=== PATIENT | male | born 1970 | race Caucasian/White ===

== ENCOUNTER 2017-02-19 09:01 | Inpatient (IN) | payer OTHER ==
[2017-02-19 10:06] VITALS: BMI 21.7
--- NOTE | 2017-02-19 14:42 | HP ---
CIWA Score - CIWA Score Nausea/Vomitin Muscle Tremors: 5 Anxiety: 4-Mod. Anxious/Guarded Agitation: 2 Paroxysmal Sweats: 4-Forehead w/Sweat Beads Orientation: 0-Oriented Tacttile Disturbances: 2-Mild Itch/Numbness/Burn Auditory Disturbances: 0-None Visual Disturbances: 0-None Headache: 1-Very Mild CIWA-Ar Total Score: 20 Admission ROS BHS - HPI Chief Complaint: "I really want to get Detoxed. I have been drinking for too long now." Pt. is here to Detox from Alcohol. Allergies/Adverse Reactions: Allergies Allergy/AdvReac Type Severity Reaction Status Date / Time No Known Allergies Allergy Verified 02/19/17 11:07 History of Present Illness: Pt. is a 47 YO male here to Detox from Alcohol. this is pt.'s first detox admission at [facility]. Pt. has had 1 previous Detox admission at [facility], many years ago. Exam Limitations: No Limitations - Ebola screening Have you traveled outside of the country in the last 21 days: No Have you had contact with anyone from an Ebola affected area: No Have you been sick,other than usual withdrawal symptoms: No Do you have a fever: No - Review of Systems Constitutional: Chills, Diaphoresis, Fever, Malaise, Night Sweats, Changes in sleep, Other (Patient ambulates with assistance of a cane.) EENT: reports: No Symptoms Reported Respiratory: reports: Productive cough Cardiac: reports: Syncope (X 1, Due to heat while at work approx. 1.5 months ago.) GI: reports: Constipated, Nausea, Indigestion : reports: No Symptoms Reported Musculoskeletal: reports: Back Pain, Neck Pain (Lipoma on posterior aspect of neck, Diagnosed approx. 2 years ago.) Integumentary: reports: No Symptoms Reported, Other (Small wound on Index finger of right hand, due to punching floor.) Neuro: reports: Numbness (Toes of Bilateral Feet.), Tingling (Toes of Bilateral Feet.), Tremors Endocrine: reports: No Symptoms Reported Hematology: reports: No Symptoms Reported Psychiatric: reports: Judgement Intact, Mood/Affect Appropiate, Orientated x3, Anxious, Depressed (Particularly after Passing of Mother, approx. 1.5 years ago. ) Other Systems: Reviewed and Negative Patient History - Patient Medical History Hx Anemia: No Hx Asthma: No Hx Chronic Obstructive Pulmonary Disease (COPD): No Hx Cancer: No Hx Cardiac Disorders: No Hx Congestive Heart Failure: No Hx Hypertension: Yes (On med.) Hx Hypercholesterolemia: Yes (No meds.) Hx Pacemaker: No HX Cerebrovascular Accident: Yes (Age 20, no lasting effect.) Hx Seizures: No Hx Dementia: No Hx Diabetes: No (Informed that he was Pre-diabetic by MD.) Hx Gastrointestinal Disorders: Yes (acid reflux) Hx Liver Disease: No Hx Genitourinary Disorders: No Hx Sexually Transmitted Disorders: No Hx Renal Disease (ESRD): No Hx Thyroid Disease: No Hx Human Immunodeficiency Virus (HIV): No (Last tested: approx. 1.5 months ago: NEGATIVE.) Hx Hepatitis C: No (Last tested: approx. 1.5 months ago: NEGATIVE.) Hx Depression: Yes (Particularly after of mother, on med., stopped approx. 6 months ago.) Hx Suicide Attempt: Yes (thought of jumping off a building at age 19; PATIENT DENIES CURRENT SI/HI.) Hx Bipolar Disorder: No Hx Schizophrenia: No Other Medical History: Spinal Stenosis, diagnosed 2009; Right knee injury ( approx. age 28). - Patient Surgical History Past Surgical History: No Hx Neurologic Surgery: No Hx Cataract Extraction: No Hx Cardiac Surgery: No Hx Lung Surgery: No Hx Breast Surgery: No Hx Breast Biopsy: No Hx Abdominal Surgery: No Hx Appendectomy: No Hx Cholecystectomy: No Hx Genitourinary Surgery: No Hx Section: No Hx Orthopedic Surgery: No Anesthesia Reaction: No - PPD History Previous Implant?: Yes Documented Results: Negative w/o proof Implanted On Prior R Admission?: No PPD to be Administered?: Yes - Reproductive History Patient is a Female of Child Bearing Age (11 -55 yrs old): No (PATIENT IS MALE.) - Smoking Cessation Smoking history: Current every day smoker Have you smoked in the past 12 months: Yes Aproximately how many cigarettes per day: 30 Cigars Per Day: 0 Hx Chewing Tobacco Use: No Initiated information on smoking cessation: Yes 'Breaking Loose' booklet given: 02/19/17 (GIVEN ON UNIT.) - Substance & Tx. History Hx Alcohol Use: Yes Hx Substance Use: Yes Substance Use Type: Alcohol Hx Substance Use Treatment: Yes (1 Previous Detox admission at [facility], several years ago.) - Substances Abused PCP Route: Smoking Frequency: 1-3 times last 30 days Amount used: $15 Age of first use: 47 Date of Last Use: 02/17/17 Alcohol-vodka Route: Oral Frequency: Daily Amount used: 2 pts. Age of first use: 15 Date of Last Use: 02/18/17 Family Disease History - Family Disease History Family Disease History: Heart Disease: Grandparent, [place]: Mother (.), Other: Daughter (Thyroid Disorder.) Admission Physical Exam [facility] - Vital Signs Vital Signs: Vital Signs - 24 hr 02/19/17 10:04 Temperature 97.1 F L Pulse Rate 101 H Respiratory 20 Rate Blood Pressure 137/79 - Physical General Appearance: Yes: Nourished, Appropriately Dressed, Mild Distress, Tremorous, Sweating, Anxious, Other (Patient ambulates with assistance of a cane.) HEENTM: Yes: Hearing grossly Normal, Normocephalic, Normal Voice, LEIGHANN, Pharynx Normal Respiratory: Yes: Chest Non-Tender, Lungs Clear, No Respiratory Distress, No Accessory Muscle Use Neck: Yes: No masses,lesions,Nodules, Supple, Trachea in good position, Other ( Lipoma on posterior aspect of neck.) Breast: Yes: Breast Exam Deferred Cardiology: Yes: Regular Rhythm, Regular Rate, S1, S2 Abdominal: Yes: Normal Bowel Sounds, Non Tender, Flat, Soft Genitourinary: Yes: Within Normal Limits Back: Yes: Decreased Range of Motion, Vertebral Tenderness Musculoskeletal: Yes: Gait Steady, Back pain Extremities: Yes: Tremors Neurological: Yes: Fully Oriented, Alert, Normal Mood/Affect, Normal Response Integumentary: Yes: Normal Color, Dry, Warm, Diaphoresis, Other (Small wound on PIP joint of Index finger of Right hand.) Lymphatic: Yes: Within Normal Limits - Diagnostic (1) Alcohol dependence with uncomplicated withdrawal Current Visit: Yes Status: Acute (2) Nicotine dependence Current Visit: Yes Status: Chronic Qualifiers: Nicotine product type: cigarettes Substance use status: uncomplicated Qualified Code(s): F17.210 - Nicotine dependence, cigarettes, uncomplicated (3) Use of cane as ambulatory aid Current Visit: Yes Status: Chronic (4) Anxiety and depression Current Visit: Yes Status: Chronic (5) History of knee problem Current Visit: Yes Status: Chronic Comment: Right Knee affected. (6) Spinal stenosis Current Visit: Yes Status: Chronic Qualifiers: Spinal region: unspecified Qualified Code(s): M48.00 - Spinal stenosis, site unspecified Cleared for Admission [facility] - Detox or Rehab [facility] Level of Care: Medically Managed Detox Regimen/Protocol: Librium [facility] Breath Alcohol Content Breath Alcohol Content: 0.062 Urine Drug Screen - Results Drug Screen Negative: No Urine Drug Screen Results: PCP-Phencyclidine
[2017-02-19] MEDS ORDERED: MAG HYDROX/AL HYDROX/SIMETH 30 ML UNIT-DOSE CUP PO PRN (15:38)
[2017-02-19] MEDS ORDERED: LOPERAMIDE HCL 2 MG CAPSULE PO PRN (15:38)
[2017-02-19] MEDS ORDERED: ACETAMINOPHEN 325 MG TABLET (FP) PO PRN (15:38)
[2017-02-19] MEDS ORDERED: IBUPROFEN 400 MG TABLET (FP) PO PRN (15:38)
[2017-02-19] MEDS ORDERED: hydrOXYzine PAMOATE 50 MG CAPSULE (FP) PO PRN (15:38)
[2017-02-19] MEDS ORDERED: MAGNESIUM HYDROX 2400MG/30ML ORAL SUSPENSION 30 ML CUP PO PRN (15:38)
[2017-02-19] MEDS ORDERED: MAGNESIUM CITRATE 300 ML BOTTLE PO PRN (15:38)
[2017-02-19] MEDS ORDERED: NICOTINE POLACRILEX 4 MG GUM BC PRN (15:38)
[2017-02-19] MEDS ORDERED: guaiFENesin/D-METHORPHAN HB 10 ML UNIT-DOSE CUPS PO PRN (15:38)
[2017-02-19] MEDS ORDERED: MENTHOL/PHENOL 1 EACH UD MM PRN (15:38)
[2017-02-19] MEDS ORDERED: P-EPHED 60MG/TRIPROLIDI 2.5MG TABLET PO PRN (15:38)
[2017-02-19] MEDS ORDERED: chlordiazePOXIDE HCL 25 MG CAPSULE PO PRN (15:38)
[2017-02-19] MEDS ORDERED: CYCLOBENZAPRINE HCL 10 MG TABLET (FP) PO PRN (15:42)
[2017-02-19] MEDS ORDERED: chlordiazePOXIDE HCL 25 MG CAPSULE PO ONE (15:57)
--- NOTE | 2017-02-19 16:30 | CONSULT ---
[facility] Psychiatric Consult - Data Date of interview: 02/19/17 Admission source: [facility] Identifying data: This is 47 years old male ambulating with cane, with psychiatric hospitalization history intoxicated with : Alcohol, Nicotine, PCP Substance Abuse History: - Smoking Cessation. Smoking history: Current every day smoker. Have you smoked in the past 12 months: Yes. Aproximately how many cigarettes per day: 30. Cigars Per Day: 0. Hx Chewing Tobacco Use: No. Initiated information on smoking cessation: Yes. 'Breaking Loose' booklet given : 02/19/17 (GIVEN ON UNIT.). - Substance & Tx. History. Hx Alcohol Use: Yes. Hx Substance Use: Yes. Substance Use Type: Alcohol. Hx Substance Use Treatment : Yes (1 Previous Detox admission at [facility], several years ago.) . - Substances Abused. PCP. Route: Smoking. Frequency: 1-3 times last 30 days. Amount used: $15. Age of first use: 47. Date of Last Use: 02/17/17. * * Alcohol-vodka. Route: Oral. Frequency: Daily. Amount used: 2 pts. Age of first use: 15. Date of Last Use: 02/18/17 Medical History: Right Knee injury history, Spinal Stenosis, ambulates withy Cane Psychiatric History: Patient reports history of depression and anxiety, reports most recent psychiatric admission on more then 10 years ago , currently is not taking psychiatric medications Physical/Sexual Abuse/Trauma History: Denies Additional Comment: Observation. Detox Unit Care Protocol Mental Status Exam - Mental Status Exam Alert and Oriented to: Person Cognitive Function: Fair Patient Appearance: Well Groomed Mood: Euthymic Affect: Mood Congruent Patient Behavior: Cooperative Speech Pattern: Appropriate Voice Loudness: Normal Thought Process: Goal Oriented Thought Disorder: Being Controlled Hallucinations: Denies Suicidal Ideation: Denies Homicidal Ideation: Denies Insight/Judgement: Fair Sleep: Difficulty falling asleep Appetite: Fair Muscle strength/Tone: Rigidity Gait/Station: Ataxic Additional Comments: Observation. Detox Unit Care Protocol Psychiatric Findings - Problem List ([place] 1, 2,3) (1) Alcohol dependence with uncomplicated withdrawal Current Visit: Yes Status: Acute (2) Anxiety and depression Current Visit: Yes Status: Chronic (3) Nicotine dependence Current Visit: Yes Status: Chronic Qualifiers: Nicotine product type: cigarettes Substance use status: uncomplicated Qualified Code(s): F17.210 - Nicotine dependence, cigarettes, uncomplicated (4) PCP (phencyclidine) abuse Current Visit: Yes Status: Acute (5) Drug-induced mood disorder Current Visit: Yes Status: Acute - Initial Treatment Plan Initial Treatment Plan: Observation. Detox Unit Care Protocol
[2017-02-19] MEDS: NICOTINE 21 MG/24 HOURS TOPICAL PATCH TD SCH (16:37)
[2017-02-19 16:53] LABS: MCH 28.9 pg (25.7-33.7); MCHC 32.8 g/dl (32.0-35.9); MEAN CELL VOLUME 88.3 fl (80-96); MEAN PLT VOLUME 8.1 fl (7.5-11.1); PLATELET COUNT 228 K/MM3 (134-434); RDW 14.8 % (11.9-15.9); WHITE BLOOD COUNT 9.8 K/mm3 (4.0-10.0)
[2017-02-19 17:29] LABS: ALBUMIN 3.6 g/dl (3.4-5.0); ANION GAP 8 (8-16); BILIRUBIN,TOTAL 0.9 mg/dL (0.2-1.0); CALCIUM 8.7 mg/dL (8.5-10.1); CO2 28 mmol/L (21-32); CREATININE 0.7 mg/dL (0.7-1.3); GLUCOSE,RANDOM 120 mg/dL (74-106); SGOT/AST 48 U/L (15-37); SGPT/ALT 40 U/L (12-78); TOT PROT 6.3 g/dl (6.4-8.2)
[2017-02-19 17:30] LABS: ALK PHOS 83 U/L (45-117)
[2017-02-19] MEDS: chlordiazePOXIDE HCL 25 MG CAPSULE PO SCH ×2 (17:36→22:30)
[2017-02-19] MEDS: BACITRACIN 0.9 GM PACKET TP SCH (18:42)
[2017-02-19 21:06] LABS: URINE APPEARANCE CLEAR; URINE BILIRUBIN NEGATIVE (NEGATIVE); URINE BLOOD NEGATIVE (NEGATIVE); URINE COLOR YELLOW; URINE GLUCOSE (UA) 1+ (NEGATIVE); URINE KETONE NEGATIVE (NEGATIVE); URINE NITRITE NEGATIVE (NEGATIVE); URINE PROTEIN NEGATIVE (NEGATIVE); URINE UROBILINOGEN NEGATIVE mg/dL (0.2-1.0)
[2017-02-19 21:10] LABS: URINE LEUK ESTERASE 1+ (NEGATIVE)
[2017-02-19 22:13] LABS: CALCIUM OXALATE CRYSTALS RARE /hpf (NONE SEEN); URINE MUCUS FEW; URINE RBC 1 /hpf (0-3); URINE WBC 15 /hpf (3-5)
[2017-02-19] MEDS: diphenhydrAMINE HCL 50 MG CAPSULE PO PRN (22:30)
[2017-02-19] MEDS: THIAMINE HCL 100 MG TABLET (FP) PO SCH (22:30)
[2017-02-20] MEDS: chlordiazePOXIDE HCL 25 MG CAPSULE PO SCH ×4 (05:45→22:14)
[2017-02-20] MEDS ORDERED: LACTULOSE 20 GM/30 ML UDC (FOR ORAL USE ONLY) PO PRN (10:10)
--- NOTE | 2017-02-20 10:24 | EKG ---
Test Reason : Blood Pressure : / mmHG Vent. Rate : 088 BPM Atrial Rate : 088 BPM P-R Int : 146 ms QRS Dur : 080 ms QT Int : 352 ms P-R-T Axes : 071 078 059 degrees QTc Int : 425 ms NORMAL SINUS RHYTHM NORMAL ECG NO PREVIOUS ECGS AVAILABLE Confirmed by MD MARVEL, CARLOS ([id number]) on 02/20/2017 10:23:51 AM Referred By: BRENNA MORALES Confirmed By:CARLOS GRIER MD
[2017-02-20] MEDS: HYDROCHLOROTHIAZIDE 25 MG TABLET (FP) PO SCH (10:27)
[2017-02-20] MEDS: BACITRACIN 0.9 GM PACKET TP SCH (10:27)
[2017-02-20] MEDS: LISINOPRIL 20 MG TABLET (FP) PO SCH (10:27)
[2017-02-20] MEDS: PRENATAL VITAMINS W/ FOLIC ACID TABLET (FP) PO SCH (10:27)
[2017-02-20] MEDS: NICOTINE 21 MG/24 HOURS TOPICAL PATCH TD SCH (10:28)
--- NOTE | 2017-02-20 11:25 | PN ---
[facility] CIWA - CIWA Score Nausea/Vomitin-No Nausea/No Vomiting Muscle Tremors: 4-Moderate,w/Arms Extend Anxiety: 4-Mod. Anxious/Guarded Agitation: 4-Moderately Restless Paroxysmal Sweats: 1-Minimal Palms Moist Orientation: 0-Oriented Tacttile Disturbances: 3-Moderate Itch/Numb/Burn Auditory Disturbances: 0-None Visual Disturbances: 0-None Headache: 0-None Present CIWA-Ar Total Score: 16 S Progress Note (SOAP) Subjective: C/O ANXIETY,TREMORS,SWEATS, NO BM/BLOATING-TAKES LACTULOSE NEEDED, BACK ACHE, TOSSED AND TURNED ALL NIGHT. Objective: 02/20/17 11:23 Vital Signs 02/20/17 02/20/17 02/20/17 03:30 06:58 09:36 Temperature 98.0 F 99.9 F H Pulse Rate 74 78 Respiratory 18 18 18 Rate Blood Pressure 134/94 131/84 Laboratory Last Values WBC 9.8 K/mm3 (4.0-10.0) 02/19/17 15:40 RBC 4.41 M/mm3 (4.00-5.60) 02/19/17 15:40 Hgb 12.8 GM/dL (11.7-16.9) 02/19/17 15:40 Hct 39.0 % (35.4-49) 02/19/17 15:40 MCV 88.3 fl (80-96) 02/19/17 15:40 MCH 28.9 pg (25.7-33.7) 02/19/17 15:40 MCHC 32.8 g/dl (32.0-35.9) 02/19/17 15:40 RDW 14.8 % (11.9-15.9) 02/19/17 15:40 Plt Count 228 K/MM3 (134-434) 02/19/17 15:40 MPV 8.1 fl (7.5-11.1) 02/19/17 15:40 Sickle Cell Screen Neg (NEGATIVE) 02/19/17 15:40 Sodium 140 mmol/L (136-145) 02/19/17 15:40 Potassium 4.3 mmol/L (3.5-5.1) 02/19/17 15:40 Chloride 104 mmol/L (98-107) 02/19/17 15:40 Carbon Dioxide 28 mmol/L (21-32) 02/19/17 15:40 Anion Gap 8 (8-16) 02/19/17 15:40 BUN 17 mg/dL (7-18) 02/19/17 15:40 Creatinine 0.7 mg/dL (0.7-1.3) 02/19/17 15:40 Creat Clearance w eGFR > 60 (>60) 02/19/17 15:40 POC Glucometer 127 UNITS (()) 02/20/17 05:47 Random Glucose 120 mg/dL (74-106) H 02/19/17 15:40 Calcium 8.7 mg/dL (8.5-10.1) 02/19/17 15:40 Total Bilirubin 0.9 mg/dL (0.2-1.0) 02/19/17 15:40 AST 48 U/L (15-37) H 02/19/17 15:40 ALT 40 U/L (12-78) 02/19/17 15:40 Alkaline Phosphatase 83 U/L (45-117) 02/19/17 15:40 Ammonia 57.87 umol/L (11-32) H 02/20/17 06:30 Total Protein 6.3 g/dl (6.4-8.2) L 02/19/17 15:40 Albumin 3.6 g/dl (3.4-5.0) 02/19/17 15:40 Urine Color Yellow 02/19/17 18:15 Urine Appearance Clear 02/19/17 18:15 Urine pH 5.0 (5.0-8.0) 02/19/17 18:15 Ur Specific [place] >= 1.030 (1.005-1.025) H 02/19/17 18:15 Urine Protein Negative (NEGATIVE) 02/19/17 18:15 Urine Glucose (UA) 1+ (NEGATIVE) H 02/19/17 18:15 Urine Ketones Negative (NEGATIVE) 02/19/17 18:15 Urine Blood Negative (NEGATIVE) 02/19/17 18:15 Urine Nitrite Negative (NEGATIVE) 02/19/17 18:15 Urine Bilirubin Negative (NEGATIVE) 02/19/17 18:15 Urine Urobilinogen Negative mg/dL (0.2-1.0) 02/19/17 18:15 Ur Leukocyte Esterase 1+ (NEGATIVE) H 02/19/17 18:15 Urine RBC 1 /hpf (0-3) 02/19/17 18:15 Urine WBC 15 /hpf (3-5) 02/19/17 18:15 Ur Epithelial Cells Rare /hpf (FEW) 02/19/17 18:15 Calcium Oxalate Crystal Rare /hpf (NONE SEEN) 02/19/17 18:15 Urine Mucus Few 02/19/17 18:15 Assessment: 02/20/17 11:24 WITHDRAWAL SX Plan: CONTINUE DETOX
[2017-02-20 17:52] LABS: URINE APPEARANCE CLEAR; URINE BILIRUBIN NEGATIVE (NEGATIVE); URINE BLOOD NEGATIVE (NEGATIVE); URINE COLOR STRAW; URINE GLUCOSE (UA) NEGATIVE (NEGATIVE); URINE KETONE NEGATIVE (NEGATIVE); URINE NITRITE NEGATIVE (NEGATIVE); URINE PROTEIN NEGATIVE (NEGATIVE); URINE UROBILINOGEN NEGATIVE mg/dL (0.2-1.0)
[2017-02-20 18:06] LABS: URINE LEUK ESTERASE 1+ (NEGATIVE)
[2017-02-20 18:35] LABS: URINE MUCUS RARE; URINE RBC 2 /hpf (0-3); URINE WBC 25 /hpf (3-5)
[2017-02-20] MEDS: THIAMINE HCL 100 MG TABLET (FP) PO SCH (22:14)
[2017-02-20] MEDS: diphenhydrAMINE HCL 50 MG CAPSULE PO PRN (22:14)
[2017-02-21] MEDS: chlordiazePOXIDE HCL 25 MG CAPSULE PO SCH ×2 (05:54→10:19)
[2017-02-21] MEDS: HYDROCHLOROTHIAZIDE 25 MG TABLET (FP) PO SCH (10:19)
[2017-02-21] MEDS: BACITRACIN 0.9 GM PACKET TP SCH (10:19)
[2017-02-21] MEDS: LISINOPRIL 20 MG TABLET (FP) PO SCH (10:19)
[2017-02-21] MEDS: NICOTINE 21 MG/24 HOURS TOPICAL PATCH TD SCH (10:20)
[2017-02-21] MEDS: PRENATAL VITAMINS W/ FOLIC ACID TABLET (FP) PO SCH (10:20)
[2017-02-21] MEDS ORDERED: WITCH HAZEL 50% (TUCKS) 40 PAD/JAR PAD TP PRN (11:18)
[2017-02-21] MEDS ORDERED: BENZOCAINE 28 GM HEMORRHOIDAL OINTMENT PR PRN (11:19)
--- NOTE | 2017-02-21 13:23 | PN ---
S CIWA - CIWA Score Nausea/Vomitin-Mild Nausea/No Vomiting Muscle Tremors: 4-Moderate,w/Arms Extend Anxiety: 3 Agitation: 3 Paroxysmal Sweats: 4-Forehead w/Sweat Beads Orientation: 0-Oriented Tacttile Disturbances: 3-Moderate Itch/Numb/Burn Auditory Disturbances: 0-None Visual Disturbances: 0-None Headache: 0-None Present CIWA-Ar Total Score: 18 BHS Progress Note (SOAP) Subjective: Constipation, Interrupted sleep, Tremors, Sweating. Objective: PT. A & O X 3, OBSERVED AMBULATING ON UNIT WITH ASSISTANCE OF A CANE. NO ACUTE DISTRESS. 02/21/17 13:24 Vital Signs Temperature 96.7 F L 02/21/17 10:00 Pulse Rate 91 H 02/21/17 10:00 Respiratory Rate 20 02/21/17 10:00 Blood Pressure 118/78 02/21/17 10:00 O2 Sat by Pulse Oximetry (%) Laboratory Tests 02/19/17 02/19/17 02/19/17 15:40 15:40 15:40 WBC 9.8 RBC 4.41 Hgb 12.8 Hct 39.0 MCV 88.3 MCH 28.9 MCHC 32.8 RDW 14.8 Plt Count 228 MPV 8.1 Sickle Cell Screen Neg Sodium 140 Potassium 4.3 Chloride 104 Carbon Dioxide 28 Anion Gap 8 BUN 17 Creatinine 0.7 Creat Clearance w eGFR > 60 POC Glucometer Random Glucose 120 H Calcium 8.7 Total Bilirubin 0.9 AST 48 H ALT 40 Alkaline Phosphatase 83 Ammonia Total Protein 6.3 L Albumin 3.6 Urine Color Urine Appearance Urine pH Ur Specific [place] Urine Protein Urine Glucose (UA) Urine Ketones Urine Blood Urine Nitrite Urine Bilirubin Urine Urobilinogen Ur Leukocyte Esterase Urine RBC Urine WBC Ur Epithelial Cells Calcium Oxalate Crystal Urine Mucus RPR Titer 02/19/17 02/19/17 02/20/17 15:40 18:15 05:47 WBC RBC Hgb Hct MCV MCH MCHC RDW Plt Count MPV Sickle Cell Screen Sodium Potassium Chloride Carbon Dioxide Anion Gap BUN Creatinine Creat Clearance w eGFR POC Glucometer 127 Random Glucose Calcium Total Bilirubin AST ALT Alkaline Phosphatase Ammonia Total Protein Albumin Urine Color Yellow Urine Appearance Clear Urine pH 5.0 Ur Specific [place] >= 1.030 H Urine Protein Negative Urine Glucose (UA) 1+ H Urine Ketones Negative Urine Blood Negative Urine Nitrite Negative Urine Bilirubin Negative Urine Urobilinogen Negative Ur Leukocyte Esterase 1+ H Urine RBC 1 Urine WBC 15 Ur Epithelial Cells Rare Calcium Oxalate Crystal Rare Urine Mucus Few RPR Titer Nonreactive 02/20/17 02/20/17 02/20/17 06:30 15:16 16:23 WBC RBC Hgb Hct MCV MCH MCHC RDW Plt Count MPV Sickle Cell Screen Sodium Potassium Chloride Carbon Dioxide Anion Gap BUN Creatinine Creat Clearance w eGFR POC Glucometer 233 Random Glucose Calcium Total Bilirubin AST ALT Alkaline Phosphatase Ammonia 57.87 H Total Protein Albumin Urine Color Straw Urine Appearance Clear Urine pH 6.0 Ur Specific [place] 1.020 Urine Protein Negative Urine Glucose (UA) Negative Urine Ketones Negative Urine Blood Negative Urine Nitrite Negative Urine Bilirubin Negative Urine Urobilinogen Negative Ur Leukocyte Esterase 1+ H Urine RBC 2 Urine WBC 25 Ur Epithelial Cells Rare Calcium Oxalate Crystal Urine Mucus Rare RPR Titer 02/21/17 05:56 WBC RBC Hgb Hct MCV MCH MCHC RDW Plt Count MPV Sickle Cell Screen Sodium Potassium Chloride Carbon Dioxide Anion Gap BUN Creatinine Creat Clearance w eGFR POC Glucometer 120 Random Glucose Calcium Total Bilirubin AST ALT Alkaline Phosphatase Ammonia Total Protein Albumin Urine Color Urine Appearance Urine pH Ur Specific [place] Urine Protein Urine Glucose (UA) Urine Ketones Urine Blood Urine Nitrite Urine Bilirubin Urine Urobilinogen Ur Leukocyte Esterase Urine RBC Urine WBC Ur Epithelial Cells Calcium Oxalate Crystal Urine Mucus RPR Titer LABS NOTED. RESULTS OF REPEAT UA FROM 02/20/2017 NOTED. PT. DENIES UNUSUAL URINARY SYMPTOMS (BURNING, PAIN, FREQUENCY). 02/21/17 13:26 02/21/17 15:19 Assessment: 02/21/17 13:24 WITHDRAWAL SYMPTOMS. Plan: CONTINUE DETOX. LACTULOSE, 20 GM PO TID FOR ELEVATED AMMONIA LEVEL AND FOR CONSTIPATION. REPEAT AMMONIA LEVEL ON 02/22/2017.
[2017-02-21] MEDS: LACTULOSE 20 GM/30 ML UDC (FOR ORAL USE ONLY) PO SCH ×2 (14:11→22:30)
[2017-02-21] MEDS: chlordiazePOXIDE 5 MG CAPSULE PO SCH ×2 (17:20→22:30)
[2017-02-21] MEDS ORDERED: DOCUSATE SODIUM 100 MG CAPSULE (FP) PO SCH (22:00)
[2017-02-21] MEDS: THIAMINE HCL 100 MG TABLET (FP) PO SCH (22:30)
[2017-02-21] MEDS: diphenhydrAMINE HCL 50 MG CAPSULE PO PRN (22:32)
[2017-02-22] MEDS: LACTULOSE 20 GM/30 ML UDC (FOR ORAL USE ONLY) PO SCH ×3 (05:18→22:20)
[2017-02-22] MEDS: chlordiazePOXIDE 5 MG CAPSULE PO SCH ×2 (05:18→10:19)
[2017-02-22] MEDS: HYDROCHLOROTHIAZIDE 25 MG TABLET (FP) PO SCH (10:19)
[2017-02-22] MEDS: NICOTINE 21 MG/24 HOURS TOPICAL PATCH TD SCH (10:19)
[2017-02-22] MEDS: LISINOPRIL 20 MG TABLET (FP) PO SCH (10:19)
[2017-02-22] MEDS: PRENATAL VITAMINS W/ FOLIC ACID TABLET (FP) PO SCH (10:19)
[2017-02-22] MEDS: BACITRACIN 0.9 GM PACKET TP SCH (10:19)
--- NOTE | 2017-02-22 16:06 | PN ---
BHS Progress Note (SOAP) Subjective: Chills, tremor, interrupted sleep, sweating Objective: 02/22/17 16:05 Last Vital Signs Temp Pulse Resp BP Pulse Ox 99.3 F 87 20 124/76 02/22/17 14:37 02/22/17 14:37 02/22/17 14:37 02/22/17 14:37 Laboratory Tests 02/19/17 02/19/17 02/19/17 15:40 15:40 15:40 WBC 9.8 RBC 4.41 Hgb 12.8 Hct 39.0 MCV 88.3 MCH 28.9 MCHC 32.8 RDW 14.8 Plt Count 228 MPV 8.1 Sickle Cell Screen Neg Sodium 140 Potassium 4.3 Chloride 104 Carbon Dioxide 28 Anion Gap 8 BUN 17 Creatinine 0.7 Creat Clearance w eGFR > 60 POC Glucometer Random Glucose 120 H Calcium 8.7 Total Bilirubin 0.9 AST 48 H ALT 40 Alkaline Phosphatase 83 Ammonia Total Protein 6.3 L Albumin 3.6 Urine Color Urine Appearance Urine pH Ur Specific [place] Urine Protein Urine Glucose (UA) Urine Ketones Urine Blood Urine Nitrite Urine Bilirubin Urine Urobilinogen Ur Leukocyte Esterase Urine RBC Urine WBC Ur Epithelial Cells Calcium Oxalate Crystal Urine Mucus RPR Titer 02/19/17 02/19/17 02/20/17 15:40 18:15 05:47 WBC RBC Hgb Hct MCV MCH MCHC RDW Plt Count MPV Sickle Cell Screen Sodium Potassium Chloride Carbon Dioxide Anion Gap BUN Creatinine Creat Clearance w eGFR POC Glucometer 127 Random Glucose Calcium Total Bilirubin AST ALT Alkaline Phosphatase Ammonia Total Protein Albumin Urine Color Yellow Urine Appearance Clear Urine pH 5.0 Ur Specific [place] >= 1.030 H Urine Protein Negative Urine Glucose (UA) 1+ H Urine Ketones Negative Urine Blood Negative Urine Nitrite Negative Urine Bilirubin Negative Urine Urobilinogen Negative Ur Leukocyte Esterase 1+ H Urine RBC 1 Urine WBC 15 Ur Epithelial Cells Rare Calcium Oxalate Crystal Rare Urine Mucus Few RPR Titer Nonreactive 02/20/17 02/20/17 02/20/17 06:30 15:16 16:23 WBC RBC Hgb Hct MCV MCH MCHC RDW Plt Count MPV Sickle Cell Screen Sodium Potassium Chloride Carbon Dioxide Anion Gap BUN Creatinine Creat Clearance w eGFR POC Glucometer 233 Random Glucose Calcium Total Bilirubin AST ALT Alkaline Phosphatase Ammonia 57.87 H Total Protein Albumin Urine Color Straw Urine Appearance Clear Urine pH 6.0 Ur Specific [place] 1.020 Urine Protein Negative Urine Glucose (UA) Negative Urine Ketones Negative Urine Blood Negative Urine Nitrite Negative Urine Bilirubin Negative Urine Urobilinogen Negative Ur Leukocyte Esterase 1+ H Urine RBC 2 Urine WBC 25 Ur Epithelial Cells Rare Calcium Oxalate Crystal Urine Mucus Rare RPR Titer 02/21/17 02/22/17 05:56 08:50 WBC RBC Hgb Hct MCV MCH MCHC RDW Plt Count MPV Sickle Cell Screen Sodium Potassium Chloride Carbon Dioxide Anion Gap BUN Creatinine Creat Clearance w eGFR POC Glucometer 120 Random Glucose Calcium Total Bilirubin AST ALT Alkaline Phosphatase Ammonia 35.17 H Total Protein Albumin Urine Color Urine Appearance Urine pH Ur Specific [place] Urine Protein Urine Glucose (UA) Urine Ketones Urine Blood Urine Nitrite Urine Bilirubin Urine Urobilinogen Ur Leukocyte Esterase Urine RBC Urine WBC Ur Epithelial Cells Calcium Oxalate Crystal Urine Mucus RPR Titer Labs noted Assessment: 02/22/17 16:06 Withdrawal symptoms Plan: Continue detox Encouraged to drink lots of water for hydration
[2017-02-22] MEDS: chlordiazePOXIDE HCL 10 MG CAPSULE PO SCH ×2 (17:34→22:20)
[2017-02-22] MEDS: THIAMINE HCL 100 MG TABLET (FP) PO SCH (22:20)
[2017-02-22] MEDS: diphenhydrAMINE HCL 50 MG CAPSULE PO PRN (22:21)
[2017-02-23] MEDS: chlordiazePOXIDE HCL 10 MG CAPSULE PO SCH (05:37)
[2017-02-23] MEDS: LACTULOSE 20 GM/30 ML UDC (FOR ORAL USE ONLY) PO SCH (05:37)
[2017-02-23 09:29] VITALS: BP 109/70; PULSE 94; TEMP 98.7
--- NOTE | 2017-02-23 12:53 | DS ---
[facility] Detox Discharge Summary Admission Date: 02/19/17 Discharge Date: 02/23/17 - History Present History: Alcohol Dependence, Pcp Dependence Pertinent Past History: HTN Spinal Stenosis - Physical Exam Results Vital Signs: Vital Signs Temperature 98.7 F 02/23/17 09:28 Pulse Rate 94 H 02/23/17 09:28 Respiratory Rate 18 02/23/17 09:28 Blood Pressure 109/70 02/23/17 09:28 O2 Sat by Pulse Oximetry (%) Pertinent Admission Physical Exam Findings: Withdrawal sx. Laboratory Last Values WBC 9.8 K/mm3 (4.0-10.0) 02/19/17 15:40 RBC 4.41 M/mm3 (4.00-5.60) 02/19/17 15:40 Hgb 12.8 GM/dL (11.7-16.9) 02/19/17 15:40 Hct 39.0 % (35.4-49) 02/19/17 15:40 MCV 88.3 fl (80-96) 02/19/17 15:40 MCH 28.9 pg (25.7-33.7) 02/19/17 15:40 MCHC 32.8 g/dl (32.0-35.9) 02/19/17 15:40 RDW 14.8 % (11.9-15.9) 02/19/17 15:40 Plt Count 228 K/MM3 (134-434) 02/19/17 15:40 MPV 8.1 fl (7.5-11.1) 02/19/17 15:40 Sickle Cell Screen Neg (NEGATIVE) 02/19/17 15:40 Sodium 140 mmol/L (136-145) 02/19/17 15:40 Potassium 4.3 mmol/L (3.5-5.1) 02/19/17 15:40 Chloride 104 mmol/L (98-107) 02/19/17 15:40 Carbon Dioxide 28 mmol/L (21-32) 02/19/17 15:40 Anion Gap 8 (8-16) 02/19/17 15:40 BUN 17 mg/dL (7-18) 02/19/17 15:40 Creatinine 0.7 mg/dL (0.7-1.3) 02/19/17 15:40 Creat Clearance w eGFR > 60 (>60) 02/19/17 15:40 POC Glucometer 113 UNITS (()) 02/23/17 05:38 Random Glucose 120 mg/dL (74-106) H 02/19/17 15:40 Calcium 8.7 mg/dL (8.5-10.1) 02/19/17 15:40 Total Bilirubin 0.9 mg/dL (0.2-1.0) 02/19/17 15:40 AST 48 U/L (15-37) H 02/19/17 15:40 ALT 40 U/L (12-78) 02/19/17 15:40 Alkaline Phosphatase 83 U/L (45-117) 02/19/17 15:40 Ammonia 35.17 umol/L (11-32) H 02/22/17 08:50 Total Protein 6.3 g/dl (6.4-8.2) L 02/19/17 15:40 Albumin 3.6 g/dl (3.4-5.0) 02/19/17 15:40 Urine Color Straw 02/20/17 15:16 Urine Appearance Clear 02/20/17 15:16 Urine pH 6.0 (5.0-8.0) 02/20/17 15:16 Ur Specific [place] 1.020 (1.005-1.025) 02/20/17 15:16 Urine Protein Negative (NEGATIVE) 02/20/17 15:16 Urine Glucose (UA) Negative (NEGATIVE) 02/20/17 15:16 Urine Ketones Negative (NEGATIVE) 02/20/17 15:16 Urine Blood Negative (NEGATIVE) 02/20/17 15:16 Urine Nitrite Negative (NEGATIVE) 02/20/17 15:16 Urine Bilirubin Negative (NEGATIVE) 02/20/17 15:16 Urine Urobilinogen Negative mg/dL (0.2-1.0) 02/20/17 15:16 Ur Leukocyte Esterase 1+ (NEGATIVE) H 02/20/17 15:16 Urine RBC 2 /hpf (0-3) 02/20/17 15:16 Urine WBC 25 /hpf (3-5) 02/20/17 15:16 Ur Epithelial Cells Rare /hpf (FEW) 02/20/17 15:16 Calcium Oxalate Crystal Rare /hpf (NONE SEEN) 02/19/17 18:15 Urine Mucus Rare 02/20/17 15:16 RPR Titer Nonreactive (NONREACTIVE) 02/19/17 15:40 labs noted - Treatment Hospital Course: Detox Protocol Followed, Detoxed Safely, Responded well, Discharged Condition Good, Rehab Referral Accepted Patient has Accepted a Rehab Referral to: [facility] - Medication Discharge Medications: Ambulatory Orders Lactulose [Cephulac -] 10 mg PO DAILY PRN 02/20/17 Omeprazole 20 mg PO DAILY 02/20/17 - Diagnosis (1) Alcohol dependence with uncomplicated withdrawal Status: Acute (2) Drug-induced mood disorder Status: Acute (3) Hypertension Status: Chronic Qualifiers: Hypertension type: essential hypertension Qualified Code(s): I10 - Essential (primary) hypertension (4) Nicotine dependence Status: Chronic Qualifiers: Nicotine product type: cigarettes Substance use status: uncomplicated Qualified Code(s): F17.210 - Nicotine dependence, cigarettes, uncomplicated (5) Spinal stenosis Status: Chronic Qualifiers: Spinal region: unspecified Qualified Code(s): M48.00 - Spinal stenosis, site unspecified (6) PCP dependence Status: Acute - AMA Did Patient Leave Against Medical Advice: No
== END 2017-02-23 08:55 | disposition home or self-care (01) | DRG 897 ==
LOC: YASAS 09:01 → Y3N 13:40
PROVIDERS: ADMIT Internal Medicine Addiction Medicine; ATTEND Internal Medicine Addiction Medicine
PROC: HZ2ZZZZ Detoxification Services for Substance Abuse Treatment (ICD-10-PCS; principal; 2017-02-19)
DX: F10.230 Alcohol dependence with withdrawal, uncomplicated (principal); F16.20 Hallucinogen dependence, uncomplicated; F17.210 Nicotine dependence, cigarettes, uncomplicated; F19.24 Other psychoactive substance dependence with psychoactive substance-induced mood disorder; F41.8 Other specified anxiety disorders; K21.9 Gastro-esophageal reflux disease without esophagitis; I10 Essential (primary) hypertension; M48.00 Spinal stenosis, site unspecified; R73.03 Prediabetes; R26.2 Difficulty in walking, not elsewhere classified; Z99.89 Dependence on other enabling machines and devices; Z86.73 Personal history of transient ischemic attack (TIA), and cerebral infarction without residual deficits; Z91.5 Personal history of self-harm
CPT/HCPCS: 36415; 80053; 81003; 81015; 82140; 85027; 85660; 86593; 87086; 93005; 93010

== ENCOUNTER 2019-06-09 12:37 | Inpatient (IN) | payer OTHER ==
[2019-06-09 13:21] VITALS: BMI 23.3
--- NOTE | 2019-06-09 15:05 | HP ---
CIWA Score Nausea/Vomitin-No Nausea/No Vomiting Muscle Tremors: 4-Moderate,w/Arms Extend Anxiety: 1-Mildly Anxious Agitation: 1-Slight > Activity Paroxysmal Sweats: 4-Forehead w/Sweat Beads Orientation: 0-Oriented Tacttile Disturbances: 0-None Auditory Disturbances: 0-None Visual Disturbances: 0-None Headache: 2-Mild CIWA-Ar Total Score: 12 - Admission Criteria OASAS Guidelines: Admission for Medically Managed Detox: Requires at least one of the followin. CIWA greater than 12 2. Seizures within the past 24 hours 3. Delirium tremens within the past 24 hours 4. Hallucinations within the past 24 hours 5. Acute intervention needed for co occurring medical disorder 6. Acute intervention needed for co occurring psychiatric disorder 7. Severe withdrawal that cannot be handled at a lower level of care (continued vomiting, continued diarrhea, abnormal vital signs) requiring intravenous medication and/or fluids 8. 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 Chief Complaint: alcohol withdrawal Allergies/Adverse Reactions: Allergies Allergy/AdvReac Type Severity Reaction Status Date / Time No Known Allergies Allergy Verified 06/09/19 13:07 History of Present Illness: 49 y.o. M PMH HTN, depression, pre-diabetes, spinal stenosis, CVA in 1997 presenting for alcohol detox. Has completed detox here in the past, did not drink for 2 years after he left and then started drinking again. Pt states he was at [facility] prior to coming here where they gave him benzos in the ED (although u-tox here was neg for benzos). EtOH: Daily use, drinks 2-3 pints vodka daily. Last drink last night, 2 pints. Has been drinking since age 14. Marijuana: only on weekends Cigarettess: 1 pack per day since age 14 PSH: none Social hx: lives alone in apartment. Not currently working. On SSI All: NKDA/ NKFA Meds: Lisinopril/ HCTZ Exam Limitations: No Limitations - Ebola screening Have you traveled outside of the country in the last 21 days: No Have you had contact with anyone from an Ebola affected area: No Do you have a fever: No - Review of Systems Constitutional: Diaphoresis EENT: reports: No Symptoms Reported Respiratory: reports: No Symptoms reported Cardiac: reports: No Symptoms Reported GI: reports: Nausea, Vomiting : reports: No Symptoms Reported Musculoskeletal: reports: No Symptoms Reported Integumentary: reports: No Symptoms Reported Neuro: reports: Headache, Tremors Hematology: reports: No Symptoms Reported Psychiatric: reports: Orientated x3, Depressed Patient History - Patient Medical History Hx Anemia: No Hx Asthma: No Hx Chronic Obstructive Pulmonary Disease (COPD): No Hx Cancer: No Hx Cardiac Disorders: No Hx Congestive Heart Failure: No Hx Hypertension: Yes (On med.) Hx Hypercholesterolemia: Yes (No meds.) Hx Pacemaker: No HX Cerebrovascular Accident: Yes (Age 20, no lasting effect.) Hx Seizures: No Hx Dementia: No Hx Diabetes: No (Informed that he was Pre-diabetic by MD.) Hx Gastrointestinal Disorders: Yes (acid reflux) Hx Liver Disease: No Hx Genitourinary Disorders: No Hx Sexually Transmitted Disorders: No Hx Renal Disease (ESRD): No Hx Thyroid Disease: No Hx Human Immunodeficiency Virus (HIV): No (Last tested: approx. 1.5 months ago: NEGATIVE.) Hx Hepatitis C: No (Last tested: approx. 1.5 months ago: NEGATIVE.) Hx Depression: Yes (Particularly after of mother, on med., stopped approx. 6 months ago.) Hx Suicide Attempt: Yes (thought of jumping off a building at age 19; PATIENT DENIES CURRENT SI/HI.) Hx Bipolar Disorder: No Hx Schizophrenia: No - Patient Surgical History Past Surgical History: No Hx Neurologic Surgery: No Hx Cataract Extraction: No Hx Cardiac Surgery: No Hx Lung Surgery: No Hx Breast Surgery: No Hx Breast Biopsy: No Hx Abdominal Surgery: No Hx Appendectomy: No Hx Cholecystectomy: No Hx Genitourinary Surgery: No Hx Section: No Hx Orthopedic Surgery: No Anesthesia Reaction: No - PPD History Date: 02/21/17 - Smoking Cessation Smoking history: Current every day smoker Have you smoked in the past 12 months: Yes Aproximately how many cigarettes per day: 30 Cigars Per Day: 0 Hx Chewing Tobacco Use: No Initiated information on smoking cessation: Yes 'Breaking Loose' booklet given: 06/09/19 - Substances abused Alcohol Substance route: Oral Frequency: Daily Amount used: 3 pints of vodka Age of first use: 14 Date of last use: 06/08/19 Admission Physical Exam BHS - Vital Signs Vital Signs: Vital Signs - 24 hr 06/09/19 13:17 Temperature 97.6 F Pulse Rate 92 H Respiratory 18 Rate Blood Pressure 156/89 - Physical General Appearance: Yes: No Apparent Distress, Tremorous HEENTM: Yes: Normal ENT Inspection, Normocephalic, LEIGHANN Respiratory: Yes: Lungs Clear, Normal Breath Sounds Neck: Yes: No masses,lesions,Nodules Cardiology: Yes: Regular Rhythm, Regular Rate, S1, S2 Abdominal: Yes: Normal Bowel Sounds, Non Tender, Soft Back: Yes: Normal Inspection Musculoskeletal: Yes: full range of Motion Extremities: Yes: Normal Inspection, Normal Range of Motion 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 NML intact, Fully Oriented, Alert Integumentary: Yes: Within Normal Limits Lymphatic: Yes: Within Normal Limits - Diagnostic (1) Alcohol dependence with uncomplicated withdrawal Current Visit: No Status: Acute (2) Hypertension Current Visit: No Status: Chronic Qualifiers: Hypertension type: essential hypertension Qualified Code(s): I10 - Essential (primary) hypertension (3) Nicotine dependence Current Visit: No Status: Chronic Qualifiers: Nicotine product type: cigarettes Substance use status: uncomplicated Qualified Code(s): F17.210 - Nicotine dependence, cigarettes, uncomplicated Breathalyzer - Breathalyzer Breathalyzer: 0.130 Urine Drug Screen - Test Device Lot number: [id number] Expiration date: 01/30/21 - Control Is test valid?: Yes - Results Drug screen NEGATIVE: Yes Inpatient Rehab Admission - Rehab Decision to Admit Inpatient rehab admission?: No
[2019-06-09] MEDS ORDERED: hydrOXYzine PAMOATE 25 MG CAPSULE (FP) PO PRN (15:19)
[2019-06-09] MEDS ORDERED: MAGNESIUM CITRATE 300 ML BOTTLE PO PRN (15:19)
[2019-06-09] MEDS ORDERED: MAG HYDROX/AL HYDROX/SIMETH 30 ML UNIT-DOSE CUP PO PRN (15:19)
[2019-06-09] MEDS ORDERED: MAGNESIUM HYDROX 2400MG/30ML ORAL SUSPENSION 30 ML CUP PO PRN (15:19)
[2019-06-09] MEDS ORDERED: BISMUTH SUBSALICYLATE 524 MG/30 ML UD PO PRN (15:19)
[2019-06-09] MEDS ORDERED: chlordiazePOXIDE HCL 25 MG CAPSULE PO PRN (15:19)
[2019-06-09] MEDS ORDERED: IBUPROFEN 400 MG TABLET (FP) PO PRN (15:19)
[2019-06-09] MEDS ORDERED: ACETAMINOPHEN 325 MG TABLET (FP) PO PRN ×2 (15:19)
[2019-06-09] MEDS ORDERED: MENTHOL/PHENOL 1 EACH UD MM PRN (15:19)
--- NOTE | 2019-06-09 15:35 | PN ---
Teaching Attending Note Name of Resident: Kathryn Travis ATTENDING PHYSICIAN STATEMENT I saw and evaluated the patient. I reviewed the resident's note and discussed the case with the resident. I agree with the resident's findings and plan as documented. SUBJECTIVE: 49 y.o. male here for etoh detox , reports was at [facility] earlier today and was referred to this facility for detox, reports alcohol use 2-3 pints vodka daily. Last drink last night, 2 pints first age of use 14. cannabis- on weekends tobaco : 1 ppd since age 14. PMH HTN, depression, pre-diabetes, spinal stenosis, CVA in 1997 OBJECTIVE: wnwd , UE tremors , ecchymosis myles LE , R U E Vital Signs - 24 hr 06/09/19 13:17 Temperature 97.6 F Pulse Rate 92 H Respiratory 18 Rate Blood Pressure 156/89 ASSESSMENT AND PLAN: AUD - Librium detox Nicotine dependence - smoking cessation counseling .
[2019-06-09] MEDS ORDERED: NICOTINE POLACRILEX 2 MG GUM BUC PRN (16:03)
[2019-06-09] MEDS: chlordiazePOXIDE HCL 25 MG CAPSULE PO SCH ×2 (16:46→22:23)
[2019-06-09] MEDS: NICOTINE 14 MG/24 HOURS TOPICAL PATCH TD SCH (16:47)
[2019-06-09] MEDS ORDERED: cloNIDine HCL 0.1 MG TABLET PO ONE (17:00)
[2019-06-09] MEDS: THIAMINE HCL 100 MG TABLET (FP) PO SCH (22:23)
[2019-06-09] MEDS: MELATONIN 5 MG TABLETS PO PRN (22:23)
[2019-06-10] MEDS: METHOCARBAMOL 500 MG TABLET PO PRN (03:31)
[2019-06-10] MEDS: chlordiazePOXIDE HCL 25 MG CAPSULE PO SCH ×4 (05:43→22:32)
[2019-06-10 10:01] LABS: HEMOGLOBIN 13.3 GM/dL (11.7-16.9); MCH 30.1 pg (25.7-33.7); MCHC 33.3 g/dl (32.0-35.9); MEAN CELL VOLUME 90.4 fl (80-96); PLATELET COUNT 269 K/MM3 (134-434); RBC 4.42 M/mm3 (4.00-5.60); RDW 14.2 % (11.9-15.9); WHITE BLOOD COUNT 8.4 K/mm3 (4.0-10.0)
[2019-06-10] MEDS: PRENATAL VITAMINS W/ FOLIC ACID TABLET (FP) PO SCH (10:11)
[2019-06-10 10:13] LABS: ALBUMIN 3.5 g/dl (3.4-5.0); BILIRUBIN,TOTAL 0.9 mg/dL (0.2-1); BLOOD UREA NITROGEN 7.7 mg/dL (7-18); CALCIUM 9.4 mg/dL (8.5-10.1); CREATININE 0.7 mg/dL (0.55-1.3)
[2019-06-10] MEDS: NICOTINE 14 MG/24 HOURS TOPICAL PATCH TD SCH (10:13)
--- NOTE | 2019-06-10 13:47 | PN ---
S CIWA - CIWA Score Nausea/Vomitin-No Nausea/No Vomiting Muscle Tremors: 3 Anxiety: 2 Agitation: 3 Paroxysmal Sweats: 2 Orientation: 0-Oriented Tacttile Disturbances: 0-None Auditory Disturbances: 0-None Visual Disturbances: 0-None Headache: 0-None Present CIWA-Ar Total Score: 10 S Progress Note (SOAP) Subjective: sweats shakes interrupted sleep headache Objective: 06/10/19 13:46 Vital Signs Temperature 98.2 F 06/10/19 09:44 Pulse Rate 70 06/10/19 09:44 Respiratory Rate 18 06/10/19 09:44 Blood Pressure 140/105 H 06/10/19 09:44 O2 Sat by Pulse Oximetry (%) Laboratory Tests 06/10/19 06/10/19 06/10/19 08:00 08:00 08:00 WBC 8.4 RBC 4.42 Hgb 13.3 Hct 40.0 MCV 90.4 MCH 30.1 MCHC 33.3 RDW 14.2 Plt Count 269 MPV 8.0 Sodium 138 Potassium 4.0 Chloride 103 Carbon Dioxide 30 Anion Gap 5 L BUN 7.7 Creatinine 0.7 Est GFR (CKD-EPI)AfAm 126.64 Est GFR (CKD-EPI)NonAf 109.27 Random Glucose 99 Calcium 9.4 Total Bilirubin 0.9 AST 36 ALT 32 Alkaline Phosphatase 92 Total Protein 6.0 L Albumin 3.5 RPR Titer Nonreactive labs noted aaox3 ambulating no acute distress Assessment: 06/10/19 13:47 withdrawal sx Plan: continue detox increase fluids tylenol/motrin prn
[2019-06-10] MEDS: MELATONIN 5 MG TABLETS PO PRN (22:32)
[2019-06-10] MEDS: THIAMINE HCL 100 MG TABLET (FP) PO SCH (22:32)
[2019-06-11] MEDS: chlordiazePOXIDE HCL 25 MG CAPSULE PO SCH ×4 (05:19→22:07)
[2019-06-11] MEDS: METHOCARBAMOL 500 MG TABLET PO PRN ×2 (10:23→17:52)
[2019-06-11] MEDS: NICOTINE 14 MG/24 HOURS TOPICAL PATCH TD SCH (10:23)
[2019-06-11] MEDS: PRENATAL VITAMINS W/ FOLIC ACID TABLET (FP) PO SCH (10:23)
--- NOTE | 2019-06-11 12:26 | PN ---
[facility] CIWA - CIWA Score Nausea/Vomitin-No Nausea/No Vomiting Muscle Tremors: 3 Anxiety: 3 Agitation: 3 Paroxysmal Sweats: 2 Orientation: 0-Oriented Tacttile Disturbances: 0-None Auditory Disturbances: 0-None Visual Disturbances: 0-None Headache: 0-None Present CIWA-Ar Total Score: 11 S Progress Note (SOAP) Subjective: sweats shakes interrupted sleep agitation Objective: 06/11/19 12:24 Vital Signs Temperature 98.1 F 06/11/19 09:50 Pulse Rate 85 06/11/19 09:50 Respiratory Rate 18 06/11/19 09:50 Blood Pressure 152/104 06/11/19 09:50 O2 Sat by Pulse Oximetry (%) Laboratory Tests 06/10/19 06/10/19 06/10/19 08:00 08:00 08:00 WBC 8.4 RBC 4.42 Hgb 13.3 Hct 40.0 MCV 90.4 MCH 30.1 MCHC 33.3 RDW 14.2 Plt Count 269 MPV 8.0 Sodium 138 Potassium 4.0 Chloride 103 Carbon Dioxide 30 Anion Gap 5 L BUN 7.7 Creatinine 0.7 Est GFR (CKD-EPI)AfAm 126.64 Est GFR (CKD-EPI)NonAf 109.27 Random Glucose 99 Calcium 9.4 Total Bilirubin 0.9 AST 36 ALT 32 Alkaline Phosphatase 92 Total Protein 6.0 L Albumin 3.5 RPR Titer Nonreactive labs noted aaox3 ambulating no acute distress elevated BP noted; will f/u BP status Assessment: 06/11/19 12:25 withdrawal sx Plan: continue detox increase fluids
[2019-06-11] MEDS: HYDROCHLOROTHIAZIDE 25 MG TABLET (FP) PO SCH (12:34)
[2019-06-11] MEDS: LISINOPRIL 20 MG TABLET (FP) PO SCH (12:35)
[2019-06-11] MEDS: MELATONIN 5 MG TABLETS PO PRN (22:05)
[2019-06-11] MEDS: THIAMINE HCL 100 MG TABLET (FP) PO SCH (22:05)
[2019-06-12] MEDS ORDERED: chlordiazePOXIDE HCL 10 MG CAPSULE PO PRN
[2019-06-12] MEDS: chlordiazePOXIDE HCL 10 MG CAPSULE PO SCH ×4 (06:09→22:49)
[2019-06-12] MEDS: PRENATAL VITAMINS W/ FOLIC ACID TABLET (FP) PO SCH (10:23)
[2019-06-12] MEDS: HYDROCHLOROTHIAZIDE 25 MG TABLET (FP) PO SCH (10:25)
[2019-06-12] MEDS: NICOTINE 14 MG/24 HOURS TOPICAL PATCH TD SCH (10:25)
[2019-06-12] MEDS: LISINOPRIL 20 MG TABLET (FP) PO SCH (10:25)
--- NOTE | 2019-06-12 16:11 | PN ---
S CIWA - CIWA Score Nausea/Vomitin-No Nausea/No Vomiting Muscle Tremors: 2 Anxiety: 2 Agitation: 2 Paroxysmal Sweats: 2 Orientation: 0-Oriented Tacttile Disturbances: 0-None Auditory Disturbances: 0-None Visual Disturbances: 0-None Headache: 0-None Present CIWA-Ar Total Score: 8 BHS Progress Note (SOAP) Subjective: Feels ok, medication working well Objective: 06/12/19 16:10 Last Vital Signs Temp Pulse Resp BP Pulse Ox 98.4 F 94 H 18 102/75 06/12/19 14:16 06/12/19 14:16 06/12/19 14:16 06/12/19 14:16 Laboratory Tests 06/10/19 06/10/19 06/10/19 08:00 08:00 08:00 WBC 8.4 RBC 4.42 Hgb 13.3 Hct 40.0 MCV 90.4 MCH 30.1 MCHC 33.3 RDW 14.2 Plt Count 269 MPV 8.0 Sodium 138 Potassium 4.0 Chloride 103 Carbon Dioxide 30 Anion Gap 5 L BUN 7.7 Creatinine 0.7 Est GFR (CKD-EPI)AfAm 126.64 Est GFR (CKD-EPI)NonAf 109.27 Random Glucose 99 Calcium 9.4 Total Bilirubin 0.9 AST 36 ALT 32 Alkaline Phosphatase 92 Total Protein 6.0 L Albumin 3.5 RPR Titer Nonreactive Labs reviewed Assessment: 06/12/19 16:11 Withdrawal sxs Plan: Continue detox Encouraged PO water intake
[2019-06-12] MEDS: THIAMINE HCL 100 MG TABLET (FP) PO SCH (22:47)
[2019-06-12] MEDS: MELATONIN 5 MG TABLETS PO PRN (22:47)
[2019-06-13] MEDS: chlordiazePOXIDE HCL 10 MG CAPSULE PO SCH ×2 (05:52→17:25)
[2019-06-13] MEDS: NICOTINE 14 MG/24 HOURS TOPICAL PATCH TD SCH (10:06)
[2019-06-13] MEDS: LISINOPRIL 20 MG TABLET (FP) PO SCH ×2 (10:06)
[2019-06-13] MEDS: PRENATAL VITAMINS W/ FOLIC ACID TABLET (FP) PO SCH (10:06)
[2019-06-13] MEDS: HYDROCHLOROTHIAZIDE 25 MG TABLET (FP) PO SCH (10:06)
[2019-06-13] MEDS ORDERED: COLLOIDAL OATMEAL 1 BAR EACH TP PRN (11:07)
[2019-06-13] MEDS ORDERED: HYDROCORTISONE 1% TOPICAL CREAM 30 GM TUBE TP PRN (11:07)
--- NOTE | 2019-06-13 11:59 | PN ---
[facility] CIWA - CIWA Score Nausea/Vomitin-No Nausea/No Vomiting Muscle Tremors: 1-None Visible, but [place] Anxiety: 1-Mildly Anxious Agitation: 1-Slight > Activity Paroxysmal Sweats: No Perspiration Orientation: 0-Oriented Tacttile Disturbances: 0-None Auditory Disturbances: 0-None Visual Disturbances: 0-None Headache: 0-None Present CIWA-Ar Total Score: 3 BHS Progress Note (SOAP) Subjective: anxiety Objective: 06/13/19 11:58 Vital Signs Temperature 97.3 F L 06/13/19 09:47 Pulse Rate 81 06/13/19 09:47 Respiratory Rate 18 06/13/19 09:47 Blood Pressure 103/77 06/13/19 09:47 O2 Sat by Pulse Oximetry (%) aaox3 ambulating no acute distress Assessment: 06/13/19 11:58 mild withdrawal sx Plan: continue detox d/c in am
[2019-06-13] MEDS: THIAMINE HCL 100 MG TABLET (FP) PO SCH (22:13)
[2019-06-13] MEDS: MELATONIN 5 MG TABLETS PO PRN (22:13)
[2019-06-13] MEDS: METHOCARBAMOL 500 MG TABLET PO PRN (22:15)
[2019-06-14] MEDS ORDERED: chlordiazePOXIDE HCL 10 MG CAPSULE PO ONE (05:00)
[2019-06-14 06:28] VITALS: BP 123/76; PULSE 70; TEMP 97.5
--- NOTE | 2019-06-14 09:23 | DS ---
[facility] Detox Discharge Summary Admission Date: 06/09/19 Discharge Date: 06/14/19 - History Present History: Alcohol Dependence, Pcp Dependence - Physical Exam Results Vital Signs: Vital Signs Temperature 97.5 F L 06/14/19 06:00 Pulse Rate 70 06/14/19 06:00 Respiratory Rate 18 06/14/19 06:00 Blood Pressure 123/76 06/14/19 06:00 O2 Sat by Pulse Oximetry (%) Pertinent Admission Physical Exam Findings: pt arrived in withdrawals Vital Signs Temperature 97.5 F L 06/14/19 06:00 Pulse Rate 70 06/14/19 06:00 Respiratory Rate 18 06/14/19 06:00 Blood Pressure 123/76 06/14/19 06:00 O2 Sat by Pulse Oximetry (%) Laboratory Tests 06/10/19 06/10/19 06/10/19 08:00 08:00 08:00 WBC 8.4 RBC 4.42 Hgb 13.3 Hct 40.0 MCV 90.4 MCH 30.1 MCHC 33.3 RDW 14.2 Plt Count 269 MPV 8.0 Sodium 138 Potassium 4.0 Chloride 103 Carbon Dioxide 30 Anion Gap 5 L BUN 7.7 Creatinine 0.7 Est GFR (CKD-EPI)AfAm 126.64 Est GFR (CKD-EPI)NonAf 109.27 Random Glucose 99 Calcium 9.4 Total Bilirubin 0.9 AST 36 ALT 32 Alkaline Phosphatase 92 Total Protein 6.0 L Albumin 3.5 RPR Titer Nonreactive pt is aaox3 ambulating no acute distress no s/s of withdrawals - Treatment Hospital Course: Detox Protocol Followed, Detoxed Safely, Responded well, Discharged Condition Good, Rehab Referral Accepted Patient has Accepted a Rehab Referral to: pt declined rehab; referral provided - Medication Discharge Medications: Ambulatory Orders Lisinopril/Hydrochlorothiazide [Lisinopril-Hctz 20-25 mg Tab] 1 each PO DAILY - Diagnosis (1) Alcohol dependence with uncomplicated withdrawal Current Visit: Yes Status: Chronic (2) Drug-induced mood disorder Current Visit: No Status: Acute (3) PCP (phencyclidine) abuse Current Visit: Yes Status: Chronic (4) Anxiety and depression Current Visit: No Status: Chronic (5) History of knee problem Current Visit: Yes Status: Chronic (6) Hypertension Current Visit: Yes Status: Chronic Qualifiers: Hypertension type: essential hypertension Qualified Code(s): I10 - Essential (primary) hypertension (7) Nicotine dependence Current Visit: Yes Status: Chronic Qualifiers: Nicotine product type: cigarettes Substance use status: uncomplicated Qualified Code(s): F17.210 - Nicotine dependence, cigarettes, uncomplicated (8) Spinal stenosis Current Visit: No Status: Chronic Qualifiers: Spinal region: unspecified Qualified Code(s): M48.00 - Spinal stenosis, site unspecified - AMA Did Patient Leave Against Medical Advice: No
== END 2019-06-14 09:32 | disposition home or self-care (01) | DRG 897 ==
LOC: YASAS 12:37 → Y6N 16:00
PROVIDERS: ADMIT Allergy & Immunology; ATTEND Allergy & Immunology
PROC: HZ2ZZZZ Detoxification Services for Substance Abuse Treatment (ICD-10-PCS; principal; 2019-06-09)
DX: F10.230 Alcohol dependence with withdrawal, uncomplicated (principal); F16.20 Hallucinogen dependence, uncomplicated; F12.10 Cannabis abuse, uncomplicated; F17.210 Nicotine dependence, cigarettes, uncomplicated; F19.24 Other psychoactive substance dependence with psychoactive substance-induced mood disorder; F42.8 Other obsessive-compulsive disorder; F32.9 Major depressive disorder, single episode, unspecified; I10 Essential (primary) hypertension; K21.9 Gastro-esophageal reflux disease without esophagitis; R73.03 Prediabetes; M48.00 Spinal stenosis, site unspecified; Z86.73 Personal history of transient ischemic attack (TIA), and cerebral infarction without residual deficits; Z87.39 Personal history of other diseases of the musculoskeletal system and connective tissue
CPT/HCPCS: 36415; 80053; 85027; 86593; J0735

== ENCOUNTER 2022-04-11 08:58 | Inpatient (IN) | payer OTHER ==
[2022-04-11 09:26] VITALS: BMI 21.7
[2022-04-11] MEDS ORDERED: MAGNESIUM CITRATE 300 ML BOTTLE PO PRN (11:11)
[2022-04-11] MEDS ORDERED: BISMUTH SUBSALICYLATE 524 MG/30 ML PO PRN (11:11)
[2022-04-11] MEDS ORDERED: DICYCLOMINE HCL 10 MG CAPSULE PO PRN (11:11)
[2022-04-11] MEDS ORDERED: MAGNESIUM HYDROX 2400MG/30ML ORAL SUSPENSION 30 ML CUP PO PRN (11:11)
[2022-04-11] MEDS ORDERED: ONDANSETRON *ODT* 4 MG TABLET SL PRN (11:11)
[2022-04-11] MEDS ORDERED: chlordiazePOXIDE HCL 25 MG CAPSULE PO PRN (11:11)
[2022-04-11] MEDS ORDERED: MAG HYDROX/AL HYDROX/SIMETH 30 ML UNIT-DOSE CUP PO PRN (11:11)
[2022-04-11] MEDS ORDERED: LOPERAMIDE HCL 2 MG CAPSULE PO PRN (11:11)
[2022-04-11] MEDS ORDERED: BENZOCAINE/MENTHOL (CHLORASEPTIC ) LOZENGE MM PRN (11:11)
[2022-04-11] MEDS ORDERED: ACETAMINOPHEN 325 MG TABLET (FP) PO PRN ×2 (11:11)
[2022-04-11] MEDS ORDERED: NICOTINE 10 MG CARTRIDGE (INHALER) IH PRN (11:11)
[2022-04-11] MEDS: IBUPROFEN 600 MG TABLET (FP) PO PRN (12:21)
[2022-04-11] MEDS: NICOTINE 21 MG/24 HOURS TOPICAL PATCH TD SCH (12:21)
[2022-04-11] MEDS: METHOCARBAMOL 500 MG TABLET PO PRN ×2 (12:21→18:01)
[2022-04-11] MEDS: hydrOXYzine PAMOATE 25 MG CAPSULE (FP) PO SCH ×3 (13:31→22:42)
[2022-04-11 14:39] LABS: HEMATOCRIT 42.3 % (35.4-49); HEMOGLOBIN 13.9 GM/dL (11.7-16.9); MCH 28.8 pg (25.7-33.7); MCHC 32.9 g/dl (32.0-35.9); MEAN CELL VOLUME 87.7 fl (80-96); MEAN PLT VOLUME 7.5 fl (7.5-11.1); PLATELET COUNT 305 10^3/uL (134-434); RBC 4.83 M/mm3 (4.00-5.60); WHITE BLOOD COUNT 6.7 K/mm3 (4.0-10.0)
[2022-04-11 14:43] LABS: ALBUMIN 3.6 g/dl (3.4-5.0); BLOOD UREA NITROGEN 8.2 mg/dL (7-18); CALCIUM 8.9 mg/dL (8.5-10.1)
[2022-04-11 14:46] LABS: CREATININE 0.7 mg/dL (0.55-1.3)
[2022-04-11 14:48] LABS: BILIRUBIN,TOTAL 0.4 mg/dL (0.2-1); TOT PROT 6.8 g/dl (6.4-8.2)
[2022-04-11] MEDS: chlordiazePOXIDE HCL 25 MG CAPSULE PO SCH ×2 (17:59→22:40)
[2022-04-11] MEDS: IBUPROFEN 400 MG TABLET (FP) PO PRN (18:03)
[2022-04-11] MEDS: THIAMINE HCL 100 MG TABLET (FP) PO SCH (22:40)
[2022-04-11] MEDS: MELATONIN 5 MG TABLETS PO SCH (22:41)
[2022-04-12] MEDS: hydrOXYzine PAMOATE 25 MG CAPSULE (FP) PO SCH ×5 (05:26→22:13)
[2022-04-12] MEDS: chlordiazePOXIDE HCL 25 MG CAPSULE PO SCH ×4 (05:26→22:13)
[2022-04-12] MEDS: PRENATAL VITAMINS W/ FOLIC ACID TABLET (FP) PO SCH (10:33)
[2022-04-12] MEDS: NICOTINE 21 MG/24 HOURS TOPICAL PATCH TD SCH (10:33)
[2022-04-12] MEDS: IBUPROFEN 400 MG TABLET (FP) PO PRN ×2 (10:35→18:17)
[2022-04-12] MEDS: METHOCARBAMOL 500 MG TABLET PO PRN ×2 (10:35→22:15)
[2022-04-12] MEDS: THIAMINE HCL 100 MG TABLET (FP) PO SCH (22:13)
[2022-04-12] MEDS: MELATONIN 5 MG TABLETS PO SCH (22:14)
[2022-04-13] MEDS: chlordiazePOXIDE HCL 25 MG CAPSULE PO SCH ×4 (05:42→22:31)
[2022-04-13] MEDS: hydrOXYzine PAMOATE 25 MG CAPSULE (FP) PO SCH ×5 (05:42→22:31)
[2022-04-13] MEDS: METHOCARBAMOL 500 MG TABLET PO PRN ×2 (10:10→17:29)
[2022-04-13] MEDS: PRENATAL VITAMINS W/ FOLIC ACID TABLET (FP) PO SCH (10:10)
[2022-04-13] MEDS: NICOTINE 21 MG/24 HOURS TOPICAL PATCH TD SCH (10:11)
[2022-04-13] MEDS: IBUPROFEN 600 MG TABLET (FP) PO PRN (13:24)
[2022-04-13] MEDS: IBUPROFEN 400 MG TABLET (FP) PO PRN (17:29)
[2022-04-13] MEDS: MELATONIN 5 MG TABLETS PO SCH (22:31)
[2022-04-13] MEDS: THIAMINE HCL 100 MG TABLET (FP) PO SCH (22:31)
[2022-04-14] MEDS ORDERED: chlordiazePOXIDE HCL 10 MG CAPSULE PO PRN
[2022-04-14] MEDS: chlordiazePOXIDE HCL 10 MG CAPSULE PO SCH ×4 (05:20→22:27)
[2022-04-14] MEDS: hydrOXYzine PAMOATE 25 MG CAPSULE (FP) PO SCH ×5 (05:20→22:27)
[2022-04-14] MEDS: NICOTINE 21 MG/24 HOURS TOPICAL PATCH TD SCH (10:23)
[2022-04-14] MEDS: PRENATAL VITAMINS W/ FOLIC ACID TABLET (FP) PO SCH (10:24)
[2022-04-14] MEDS: IBUPROFEN 400 MG TABLET (FP) PO PRN (10:24)
[2022-04-14] MEDS: METHOCARBAMOL 500 MG TABLET PO PRN (17:15)
[2022-04-14] MEDS: MELATONIN 5 MG TABLETS PO SCH (22:26)
[2022-04-14] MEDS: THIAMINE HCL 100 MG TABLET (FP) PO SCH (22:26)
[2022-04-14] MEDS: IBUPROFEN 600 MG TABLET (FP) PO PRN (22:28)
[2022-04-15] MEDS: chlordiazePOXIDE HCL 10 MG CAPSULE PO SCH ×2 (05:49→17:36)
[2022-04-15] MEDS: hydrOXYzine PAMOATE 25 MG CAPSULE (FP) PO SCH ×5 (05:49→22:07)
[2022-04-15] MEDS: PRENATAL VITAMINS W/ FOLIC ACID TABLET (FP) PO SCH (10:16)
[2022-04-15] MEDS: NICOTINE 21 MG/24 HOURS TOPICAL PATCH TD SCH (10:17)
[2022-04-15] MEDS: IBUPROFEN 600 MG TABLET (FP) PO PRN ×2 (10:17→22:07)
[2022-04-15] MEDS: METHOCARBAMOL 500 MG TABLET PO PRN (17:35)
[2022-04-15] MEDS: MELATONIN 5 MG TABLETS PO SCH (22:06)
[2022-04-15] MEDS: THIAMINE HCL 100 MG TABLET (FP) PO SCH (22:07)
[2022-04-16] MEDS ORDERED: chlordiazePOXIDE HCL 10 MG CAPSULE PO ONE (05:00)
[2022-04-16] MEDS: hydrOXYzine PAMOATE 25 MG CAPSULE (FP) PO SCH ×2 (06:24→09:55)
[2022-04-16 09:35] VITALS: BP 126/74; PULSE 86; RESP 17; TEMP 96.9
[2022-04-16] MEDS: IBUPROFEN 600 MG TABLET (FP) PO PRN (09:43)
[2022-04-16] MEDS: PRENATAL VITAMINS W/ FOLIC ACID TABLET (FP) PO SCH (09:55)
[2022-04-16] MEDS: NICOTINE 21 MG/24 HOURS TOPICAL PATCH TD SCH (09:55)
== END 2022-04-16 10:06 | disposition home or self-care (01) | DRG 897 ==
LOC: YASAS 08:58 → Y6N 11:51
PROVIDERS: ADMIT Allergy & Immunology; ATTEND Surgery
PROC: HZ2ZZZZ Detoxification Services for Substance Abuse Treatment (ICD-10-PCS; principal; 2022-04-11)
DX: F10.230 Alcohol dependence with withdrawal, uncomplicated (principal); F12.20 Cannabis dependence, uncomplicated; F17.210 Nicotine dependence, cigarettes, uncomplicated; F31.9 Bipolar disorder, unspecified; F41.9 Anxiety disorder, unspecified; E78.5 Hyperlipidemia, unspecified; I10 Essential (primary) hypertension; M48.00 Spinal stenosis, site unspecified; H61.22 Impacted cerumen, left ear; R73.09 Other abnormal glucose; R26.89 Other abnormalities of gait and mobility; Z99.89 Dependence on other enabling machines and devices; Z86.73 Personal history of transient ischemic attack (TIA), and cerebral infarction without residual deficits; Z28.310 Unvaccinated for COVID-19; Z28.9 Immunization not carried out for unspecified reason
CPT/HCPCS: 36415; 80053; 83036; 85027; 86780; 93005; 93010; C9803-CS; U0003; U0005